=== PATIENT | male | born 1955 | race American Indian/Alaskan Native ===

== ENCOUNTER 2022-01-19 14:42 | Emergency (ER) | payer SELFPAY ==
[2022-01-19 15:51] VITALS: BP 122/79
--- NOTE | 2022-01-19 17:45 | Emergency Department Report ---
ED Recheck HPI - General Chief Complaint: High BP Stated Complaint: BP MEDS Time Seen by Provider: 01/19/22 17:12 Source: patient Mode of arrival: Ambulatory Limitations: Physical Limitation - History of Present Illness Initial Comments: This is a 66-year-old male nontoxic, well nourished in appearance, no acute signs of distress presents to the ED for blood pressure medication refill. Patient stated last dose was 2 days ago and his primary care doctor is unable to fit patient into the schedule. Otherwise patient denies any symptoms or complaints. Denies any headache, chest pain, shortness of breath, fever, chills, nausea, vomiting, numbness or tingling. Denies any allergies. Patient stated takes metoprolol 25 mg BID. MD Complaint: medication refill request -: days(s) Returns Today for: request for prescription Symptoms Since Prior Visit: no new symptoms Associated Symptoms: none. denies: fever, chills, chest pain, shortness of breath, rash, malaise, nasuea, abdominal pain - Related Data Previous Rx's Medication Instructions Recorded Last Taken Type Metoprolol [Lopressor TAB] 25 mg PO BID #60 tablet 01/19/22 Unknown Rx Allergies Allergy/AdvReac Type Severity Reaction Status Date / Time No Known Allergies Allergy Verified 01/19/22 15:52 ED Review of Systems ROS: Stated complaint: BP MEDS Other details as noted in HPI Comment: All other systems reviewed and negative Constitutional: denies: chills, fever Eyes: denies: eye pain, eye discharge, vision change ENT: denies: ear pain, throat pain Respiratory: denies: cough, shortness of breath, wheezing Cardiovascular: denies: chest pain, palpitations Endocrine: no symptoms reported Gastrointestinal: denies: abdominal pain, nausea, diarrhea Genitourinary: denies: urgency, dysuria Musculoskeletal: denies: back pain, joint swelling, arthralgia Skin: denies: rash, lesions Neurological: denies: headache, weakness, paresthesias Psychiatric: denies: anxiety, depression Hematological/Lymphatic: denies: easy bleeding, easy bruising ED Past Medical Hx - Medications Home Medications: Home Medications Medication Instructions Recorded Confirmed Last Taken Type Metoprolol [Lopressor TAB] 25 mg PO BID #60 tablet 01/19/22 Unknown Rx ED Physical Exam - General Limitations: Physical Limitation General appearance: alert, in no apparent distress - Head Head exam: Present: atraumatic, normocephalic - Eye Eye exam: Present: normal appearance - Neck Neck exam: Present: normal inspection, full ROM. Absent: lymphadenopathy - Respiratory Respiratory exam: Absent: respiratory distress - Cardiovascular Cardiovascular Exam: Present: regular rate - Extremities Exam Extremities exam: Present: full ROM - Back Exam Back exam: Present: full ROM - Neurological Exam Neurological exam: Present: alert, oriented X3, normal gait - Psychiatric Psychiatric exam: Present: normal affect, normal mood - Skin Skin exam: Present: warm, dry, intact, normal color. Absent: rash ED Course Vital Signs 01/19/22 15:47 Temperature 98.6 F Pulse Rate 108 H Blood Pressure 122/79 [Left] O2 Sat by Pulse 98 Oximetry - Reevaluation(s) Reevaluation #1: 01/19/22 17:43 Patient is speaking in full sentences with no signs of distress noted. ED Recheck MDM - Medical Decision Making 66-year-old male that presents with medication for refill. Patient is stable and was examined by me. I will refill patient's medication at this time. Vital signs are stable at discharge. Physical exam is unremarkable. Patient was instructed to follow-up with a primary care doctor in 3-5 days or if symptoms worsen and continue return to emergency room as soon as possible. At time of d ischarge, the patient does not seem toxic or ill in appearance. No acute signs of distress noted. Patient agrees to discharge treatment plan of care. No further questions noted by the patient. Critical care attestation.: If time is entered above; I have spent that time in minutes in the direct care of this critically ill patient, excluding procedure time. ED Disposition Clinical Impression: Medication refill Disposition: 01 HOME / SELF CARE / HOMELESS Is pt being admited?: No Does the pt Need Aspirin: No Condition: Stable Instructions: Metoprolol tablets Additional Instructions: Follow-up with a primary care doctor in 3-5 days or if symptoms worsen and continue return to emergency room as soon as possible. Prescriptions: Metoprolol [Lopressor TAB] 25 mg PO BID #60 tablet Referrals: PRIMARY CAREMD [Referring] - 3-5 Days MAYKEL LUTZ MD [Staff Physician] - 3-5 Days Time of Disposition: 17:44
== END 2022-01-19 19:00 | disposition home or self-care (01) ==
LOC: ED 14:42
DX: I10 Essential (primary) hypertension (principal); Z76.0 Encounter for issue of repeat prescription; Z79.899 Other long term (current) drug therapy
CPT/HCPCS: 99282